=== PATIENT | male | born 1965 | race Caucasian/White ===

== ENCOUNTER 2021-08-20 15:27 | Emergency (ER) | payer BC, MEDICAID ==
[~2021-08-20] VITALS: Ht 177.8 cm; Wt 86.4 kg
[2021-08-20 17:31] VITALS: BP 122/72
[2021-08-20] MEDS ORDERED: CYCLOBENZ5 MG PO (17:35)
[2021-08-20] MEDS ORDERED: LISINOPRIL10 MG PO (17:35)
== END 2021-08-20 17:31 | disposition home or self-care (01) ==
LOC: ED 15:27
DX: M54.50 Low back pain, unspecified (principal); G89.29 Other chronic pain; F17.210 Nicotine dependence, cigarettes, uncomplicated; X50.1XXA Overexertion from prolonged static or awkward postures, initial encounter
CPT/HCPCS: J1885; J2360